=== PATIENT | female | born 1990 | race Caucasian/White ===

== ENCOUNTER 2022-08-17 11:56 | Emergency (ER) | payer MEDICAID ==
[2022-08-17] MEDS ORDERED: Morphine 4 MG/ML Syringe IVPUSH STA (12:29)
[2022-08-17] MEDS ORDERED: Sodium Chloride 0.9% 1,000 ML IV STA ×2 (12:29→13:39)
[2022-08-17] MEDS ORDERED: Ondansetron 4 MG/2 ML SDV IVPUSH STA (12:29)
[2022-08-17 13:15] LABS: CARBON DIOXIDE,CO2 26.6 mmol/L (21.0-32.0); POTASSIUM,K 3.9 mmol/L (3.5-5.1)
[2022-08-17] MEDS ORDERED: Magnesium Sulfate/Water 2 GM in Premix Bag 1 BAG IV STA (13:36)
[2022-08-17] MEDS ORDERED: HYDROmorphone 1 MG/ML Syringe IVPUSH STA (13:39)
[2022-08-17] MEDS ORDERED: Prochlorperazine 10 MG/2 ML SDV IVPUSH STA (13:39)
== END 2022-08-17 15:34 | disposition home or self-care (01) ==
LOC: MW.ED 11:56
DX: R10.2 Pelvic and perineal pain (principal); D50.9 Iron deficiency anemia, unspecified; R11.2 Nausea with vomiting, unspecified; E83.42 Hypomagnesemia; D75.839 Thrombocytosis, unspecified; Z88.1 Allergy status to other antibiotic agents; Z88.0 Allergy status to penicillin; Z87.42 Personal history of other diseases of the female genital tract
CPT/HCPCS: 36415; 80053; 81001; 81025; 83735; 85025; 96361; 96365; 96375; 99284; J0780; J1170; J2270; J2405; J3475; J7030

== ENCOUNTER 2022-09-24 07:23 | Emergency (ER) | payer OTHER, MEDICAID ==
[2022-09-24] MEDS ORDERED: Sodium Chloride 0.9% 1,000 ML IV ONE (07:26)
[2022-09-24] MEDS ORDERED: HYDROmorphone 2 MG/ML Syringe IVPUSH ONE (07:47)
[2022-09-24 08:03] LABS: BLOOD UREA NITROGEN,BUN 12 mg/dL (7.0-18.0); CARBON DIOXIDE,CO2 22.4 mmol/L (21.0-32.0); CHLORIDE,CL 105 mmol/L (98-107); GLUCOSE RANDOM 104 mg/dL (74-106); LIPASE 142 U/L (73-393); POTASSIUM,K 3.6 mmol/L (3.5-5.1); SODIUM,NA 139 mmol/L (136-145)
[2022-09-24 08:06] LABS: ESTIMATED GFR 102 mL/min (>60)
== END 2022-09-24 08:56 | disposition home or self-care (01) ==
LOC: MW.ED 07:23
DX: M54.2 Cervicalgia (principal); M54.50 Low back pain, unspecified; M54.6 Pain in thoracic spine; M25.511 Pain in right shoulder; M25.512 Pain in left shoulder; M25.522 Pain in left elbow; M79.7 Fibromyalgia; Z88.6 Allergy status to analgesic agent; Z88.1 Allergy status to other antibiotic agents; Z88.0 Allergy status to penicillin; Z86.16 Personal history of COVID-19; Z79.899 Other long term (current) drug therapy; V47.5XXA Car driver injured in collision with fixed or stationary object in traffic accident, initial encounter; Y92.410 Unspecified street and highway as the place of occurrence of the external cause
CPT/HCPCS: 36415; 70450; 71260; 72125; 74177; 80053; 80307; 83690; 83735; 84484; 84703; 85025; 85610; 85730; 96361; 96374; 99284; J1170; J7030; 72128-26; 72131-26; 99283

== ENCOUNTER 2022-09-26 09:07 | Emergency (ER) | payer MEDICAID | END 2022-09-26 09:17 | disposition left against medical advice (07) | LOC: MW.ED 09:07 | DX: Z53.21 Procedure and treatment not carried out due to patient leaving prior to being seen by health care provider (principal) ==

== ENCOUNTER 2022-10-03 12:22 | Emergency (ER) | payer OTHER, MEDICAID ==
[2022-10-03] MEDS: Orphenadrine 60 MG/2 ML Inj IM ONE (13:03)
[2022-10-03] MEDS: Ketorolac 60 MG/2 ML SDV IM ONE (13:03)
== END 2022-10-03 13:24 | disposition home or self-care (01) ==
LOC: MW.ED 12:22
DX: S46.812A Strain of other muscles, fascia and tendons at shoulder and upper arm level, left arm, initial encounter (principal); Z88.1 Allergy status to other antibiotic agents; Z88.8 Allergy status to other drugs, medicaments and biological substances; V89.2XXA Person injured in unspecified motor-vehicle accident, traffic, initial encounter; Y92.410 Unspecified street and highway as the place of occurrence of the external cause
CPT/HCPCS: 96372; 99283; J1885; J2360

== ENCOUNTER 2023-10-26 20:56 | Emergency (ER) | payer MEDICAID ==
[2023-10-26] MEDS: Albuterol/Ipratropium 3.0-0.5 MG/3 ML Neb Soln NEB ONE (21:36)
[2023-10-26] MEDS: Sodium Chloride 0.9% 2.5 ML Syringe FLUSH PRN (21:38)
[2023-10-26] MEDS: Sodium Chloride 0.9% 10 ML Syringe FLUSH PRN (21:39)
[2023-10-26 21:50] LABS: BASOPHILS ABSOLUTE AUTO 0.04 K/uL (0.00-0.20); BASOPHILS PERCENT AUTO 0.4 % (0.0-1.0); EOSINOPHILS ABSOLUTE AUTO 0.33 K/uL (0.00-0.45); EOSINOPHILS PERCENT AUTO 3.1 % (0.0-6.0); HEMATOCRIT 38.2 % (37.0-47.0); IMMATURE GRAN ABSOLUTE AUTO 0.09 K/uL (0.00-0.05); IMMATURE GRAN PERCENT AUTO 0.8 % (0.0-0.4); LYMPHOCYTES ABSOLUTE AUTO 4.66 K/uL (1.00-4.80); LYMPHOCYTES PERCENT AUTO 43.1 % (24.0-44.0); MEAN CORPUSCULAR HEMOGLOBIN 26.7 pg (28.0-32.0); MEAN CORPUSCULAR VOLUME 78.6 fL (83.0-99.0); MEAN PLATELET VOLUME 9.4 fL (9.4-12.3); MONOCYTES ABSOLUTE AUTO 0.67 K/uL (0.00-0.80); MONOCYTES PERCENT AUTO 6.2 % (0.0-8.0); NEUTROPHILS ABSOLUTE AUTO 5.02 K/uL (1.80-7.70); NEUTROPHILS PERCENT AUTO 46.4 % (41.0-71.0); PLATELET COUNT,PLT 366 K/uL (150-400); RED BLOOD CELL COUNT 4.86 M/uL (4.10-5.30); WHITE BLOOD CELL COUNT,WBC 10.81 K/uL (3.9-11.3)
[2023-10-26 22:17] LABS: A/G RATIO 0.7 (0.9-1.6); ALANINE AMINOTRANSFERASE,ALT 25 IU/L (14-63); ALBUMIN 3.1 g/dL (3.4-5.0); ALKALINE PHOSPHATASE 77 U/L (46-116); ASPARTATE AMNIOTRANSFERASE,AST 16 IU/L (15-37); BILIRUBIN TOTAL 0.1 mg/dL (0.2-1.0); BLOOD UREA NITROGEN,BUN 14 mg/dL (7.0-18.0); CALCIUM 9.6 mg/dL (8.5-10.1); CARBON DIOXIDE,CO2 25.2 mmol/L (21.0-32.0); CHLORIDE,CL 102 mmol/L (98-107); CREATININE 0.9 mg/dL (0.6-1.0); EST CRCL DRUG DOSING (CG) 71.63 mL/min; GLUCOSE RANDOM 91 mg/dL (74-106); POTASSIUM,K 4.1 mmol/L (3.5-5.1); PROTEIN TOTAL,TP 7.6 g/dL (6.4-8.2); SODIUM,NA 139 mmol/L (136-145)
[2023-10-26 22:27] LABS: ESTIMATED GFR 88 mL/min (>60)
[2023-10-26 23:17] LABS: CORONAVIRUS COVID-19 NAA NEGATIVE (NEGATIVE); INFLUENZA A NAA NEGATIVE (NEGATIVE); INFLUENZA B NAA NEGATIVE (NEGATIVE)
[2023-10-26] MEDS: Sucralfate Suspension 1 GM/10 ML Cup PO ONE (23:49)
[2023-10-26] MEDS: Sodium Chloride 0.9% 500 ML IV SCH (23:49)
[2023-10-26] MEDS: Famotidine 20 MG/2 ML SDV IVPUSH ONE (23:50)
[2023-10-27] MEDS: Metoclopramide 10 MG/2 ML SDV IVPUSH ONE (00:06)
[2023-10-27] MEDS: diphenhydrAMINE 50 MG/ML SDV IVPUSH ONE (00:06)
[2023-10-27] MEDS ORDERED: Iopamidol 755 MG/ML 500 ML Multipack Bottle IVPUSH ONE (00:55)
== END 2023-10-27 02:25 | disposition home or self-care (01) ==
LOC: MW.ED 20:56
DX: R07.89 Other chest pain (principal); R05.9 Cough, unspecified; Z88.4 Allergy status to anesthetic agent; Z88.1 Allergy status to other antibiotic agents; Z88.0 Allergy status to penicillin; Z88.8 Allergy status to other drugs, medicaments and biological substances; Z79.899 Other long term (current) drug therapy; Z86.16 Personal history of COVID-19; Z86.19 Personal history of other infectious and parasitic diseases
CPT/HCPCS: 0240U; 36415; 71046; 71275; 80053; 84484; 84703; 85025; 85379; 93005; 96374; 96375; 99285; A9270; J1200; J2765; J3490; J7040; 93010; 99284; J7620-GY

== ENCOUNTER 2024-04-23 09:21 | Day surgery (SDC) | payer MEDICAID ==
[2024-04-23] MEDS ORDERED: Propofol 200 MG/20 ML SDV ONE ×2 (10:24→10:39)
[2024-04-23] MEDS ORDERED: Lidocaine 2% 5 ML SDV ONE (10:24)
[2024-04-23] MEDS ORDERED: Midazolam 1 MG/ML 2 ML SDV ONE (10:28)
[2024-04-23] MEDS: Lactated Ringers 1,000 ML IV SCH (10:33)
[2024-04-23] MEDS ORDERED: Ondansetron 4 MG/2 ML SDV ONE ×2 (10:42→11:18)
[2024-04-23] MEDS ORDERED: Lactated Ringers 1,000 ML IV SCH (11:00)
[2024-04-23] MEDS: Ondansetron 4 MG/2 ML SDV IVPUSH ONE (11:28)
== END 2024-04-23 11:45 | disposition home or self-care (01) ==
LOC: MW.SDS 09:21
PROVIDERS: ATTEND Surgery
DX: K21.00 Gastro-esophageal reflux disease with esophagitis, without bleeding (principal); K44.9 Diaphragmatic hernia without obstruction or gangrene; F32.A Depression, unspecified; F41.1 Generalized anxiety disorder; Z79.899 Other long term (current) drug therapy; Z88.0 Allergy status to penicillin; Z88.5 Allergy status to narcotic agent
CPT/HCPCS: 43239; 81025; J2250; J2405; J2704; J7120; 00731; J3490

== ENCOUNTER 2024-10-10 20:08 | Emergency (ER) | payer MEDICAID ==
[2024-10-10] MEDS: Sodium Chloride 0.9% 1,000 ML IV ONE ×2 (20:24→20:45)
[2024-10-10] MEDS: Ondansetron 4 MG/2 ML SDV IVPUSH ONE (20:25)
[2024-10-10 20:27] LABS: BASOPHILS ABSOLUTE AUTO 0.06 K/uL (0.00-0.20); BASOPHILS PERCENT AUTO 0.3 % (0.0-1.0); EOSINOPHILS ABSOLUTE AUTO 0.01 K/uL (0.00-0.45); HEMATOCRIT 42.2 % (37.0-47.0); HEMOGLOBIN 14.5 g/dL (12.0-16.0); IMMATURE GRAN PERCENT AUTO 0.5 % (0.0-0.4); LYMPHOCYTES ABSOLUTE AUTO 0.76 K/uL (1.00-4.80); LYMPHOCYTES PERCENT AUTO 3.6 % (24.0-44.0); MEAN CORPUSCULAR HEMOGLOBIN 27.3 pg (28.0-32.0); MEAN CORPUSCULAR HGB CONC 34.4 g/dL (32.0-36.0); MEAN CORPUSCULAR VOLUME 79.3 fL (83.0-99.0); MEAN PLATELET VOLUME 9.2 fL (9.4-12.3); MONOCYTES ABSOLUTE AUTO 0.62 K/uL (0.00-0.80); MONOCYTES PERCENT AUTO 2.9 % (0.0-8.0); NEUTROPHILS ABSOLUTE AUTO 19.64 K/uL (1.80-7.70); NEUTROPHILS PERCENT AUTO 92.7 % (41.0-71.0); PLATELET COUNT,PLT 592 K/uL (150-400); RED BLOOD CELL COUNT 5.32 M/uL (4.10-5.30); WHITE BLOOD CELL COUNT,WBC 21.19 K/uL (3.9-11.3)
[2024-10-10] MEDS: HYDROmorphone 1 MG/ML Syringe IVPUSH ONE (20:27)
[2024-10-10 21:04] LABS: GLUCOSE,URINE NEGATIVE (NEGATIVE); KETONES,URINE 40 mg/dL (NEGATIVE); LEUKOCYTE ESTERASE,URINE NEGATIVE (NEGATIVE); NITRITE,URINE NEGATIVE (NEGATIVE); OCCULT BLOOD,URINE MODERATE (NEGATIVE); PH,URINE 5.5 (5.0-8.0); PROTEIN,URINE 30 mg/dL (NEGATIVE); UROBILINOGEN,URINE 0.2 EU/dL (<2.0)
[2024-10-10] MEDS: cefTRIAXone 1 GM in Sodium Chloride 0.9% 50 ML IV ONE (21:09)
[2024-10-10 21:19] LABS: APPEARANCE,URINE HAZY; BILIRUBIN,URINE SMALL (NEGATIVE); COLOR,URINE DARK YELLOW
[2024-10-10 21:20] LABS: AMORPHOUS SEDIMENT,URINE HEAVY (NEGATIVE); BACTERIA,URINE 1+ (NEGATIVE); EPITHELIAL CELLS,URINE FEW (NONE-FEW); MUCUS,URINE MODERATE (NONE-MOD); WBC,URINE 0-2 (0-5/HPF)
[2024-10-10] MEDS: Iopamidol 755 MG/ML 500 ML Multipack Bottle IVPUSH ONE (21:23)
[2024-10-10 21:31] LABS: LACTIC ACID 2.6 mmol/L (0.4-2.0)
[2024-10-10 21:43] LABS: A/G RATIO 0.9 (0.9-1.6); BILIRUBIN TOTAL 0.7 mg/dL (0.2-1.0); CALCIUM 9.4 mg/dL (8.5-10.1); CARBON DIOXIDE,CO2 18.5 mmol/L (21.0-32.0); CREATININE 1.3 mg/dL (0.6-1.0); EST CRCL DRUG DOSING (CG) 51.39 mL/min; POTASSIUM,K 3.9 mmol/L (3.5-5.1); PROTEIN TOTAL,TP 8.6 g/dL (6.4-8.2)
[2024-10-10 21:59] LABS: CANDIDA DNA PROBE NEGATIVE (NEGATIVE); GARDNERELLA DNA PROBE POSITIVE (NEGATIVE); TRICHOMONAS DNA PROBE NEGATIVE (NEGATIVE)
[2024-10-10] MEDS: metroNIDAZOLE/Normal Saline 500 MG in Premix Bag 1 BAG IV ONE (22:14)
[2024-10-10 22:34] LABS: C. TRACHOMATIS BY PCR NOT DETECTED; N. GONORRHOEAE BY PCR NOT DETECTED
== END 2024-10-10 23:13 | disposition home or self-care (01) ==
LOC: MW.ED 20:08
DX: K52.9 Noninfective gastroenteritis and colitis, unspecified (principal); Z86.16 Personal history of COVID-19; Z88.1 Allergy status to other antibiotic agents; Z79.899 Other long term (current) drug therapy; Z88.0 Allergy status to penicillin; Z88.8 Allergy status to other drugs, medicaments and biological substances; Z75.8 Other problems related to medical facilities and other health care
CPT/HCPCS: 36415; 74177; 76856; 80053; 81001; 81025; 83605; 83690; 85025; 87040; 87480; 87491; 87510; 87591; 87660; 96361; 96365; 96367; 96375; 99284; J0696; J1171; J1836; J2405; J7030; Q9967; 99283

== ENCOUNTER 2024-12-13 15:48 | Emergency (ER) | payer BC, MEDICAID ==
[2024-12-13 17:08] LABS: HEMATOCRIT 35.4 % (37.0-47.0); HEMOGLOBIN 11.9 g/dL (12.0-16.0); IMMATURE GRAN ABSOLUTE AUTO 0.02 K/uL (0.00-0.05); IMMATURE GRAN PERCENT AUTO 0.2 % (0.0-0.4); LYMPHOCYTES PERCENT AUTO 34.3 % (24.0-44.0); MEAN CORPUSCULAR HGB CONC 33.6 g/dL (32.0-36.0); MEAN CORPUSCULAR VOLUME 80.3 fL (83.0-99.0); MEAN PLATELET VOLUME 9.1 fL (9.4-12.3); MONOCYTES ABSOLUTE AUTO 0.66 K/uL (0.00-0.80); MONOCYTES PERCENT AUTO 6.7 % (0.0-8.0); NEUTROPHILS ABSOLUTE AUTO 5.52 K/uL (1.80-7.70); NEUTROPHILS PERCENT AUTO 55.8 % (41.0-71.0); PLATELET COUNT,PLT 414 K/uL (150-400); RED BLOOD CELL COUNT 4.41 M/uL (4.10-5.30)
[2024-12-13] MEDS: Alum Hydrox/Mag Hydrox/Simeth 15 ML, Metoclopramide 5 MG, Lidocaine 2% 5 ML PO ONE (17:14)
[2024-12-13] MEDS: Ketorolac 10 MG Tab PO ONE (17:16)
[2024-12-13 17:30] LABS: A/G RATIO 0.9 (0.9-1.6); ALBUMIN 3.2 g/dL (3.4-5.0); BILIRUBIN TOTAL 0.2 mg/dL (0.2-1.0); CARBON DIOXIDE,CO2 23.7 mmol/L (21.0-32.0); CREATININE 0.9 mg/dL (0.6-1.0); EST CRCL DRUG DOSING (CG) 70.98 mL/min; POTASSIUM,K 3.7 mmol/L (3.5-5.1); PROTEIN TOTAL,TP 6.9 g/dL (6.4-8.2)
[2024-12-13 18:16] LABS: BILIRUBIN,URINE NEGATIVE (NEGATIVE); COLOR,URINE YELLOW; GLUCOSE,URINE NEGATIVE (NEGATIVE); KETONES,URINE 15 mg/dL (NEGATIVE); LEUKOCYTE ESTERASE,URINE NEGATIVE (NEGATIVE); NITRITE,URINE NEGATIVE (NEGATIVE); OCCULT BLOOD,URINE MODERATE (NEGATIVE); PH,URINE 5.5 (5.0-8.0); PROTEIN,URINE NEGATIVE (NEGATIVE); UROBILINOGEN,URINE 0.2 EU/dL (<2.0)
[2024-12-13 18:20] LABS: APPEARANCE,URINE HAZY
[2024-12-13 18:25] LABS: BACTERIA,URINE FEW (NEGATIVE); EPITHELIAL CELLS,URINE RARE (NONE-FEW); MUCUS,URINE FEW (NONE-MOD); RBC,URINE 0-2 (0-2/HPF); WBC,URINE 0-2 (0-5/HPF)
== END 2024-12-13 19:05 | disposition home or self-care (01) ==
LOC: MW.ED 15:48
DX: R10.9 Unspecified abdominal pain (principal); Z75.3 Unavailability and inaccessibility of health-care facilities; Z88.6 Allergy status to analgesic agent; Z88.0 Allergy status to penicillin; Z88.1 Allergy status to other antibiotic agents; Z79.899 Other long term (current) drug therapy; Z86.16 Personal history of COVID-19
CPT/HCPCS: 36415; 80053; 81001; 81025; 83690; 85025; 99284; A9270; 99283

== ENCOUNTER 2025-05-27 09:11 | Emergency (ER) | payer BC ==
[2025-05-27] MEDS ORDERED: Sodium Chloride 0.9% 2.5 ML Syringe FLUSH PRN (09:44)
[2025-05-27] MEDS ORDERED: Sodium Chloride 0.9% 10 ML Syringe FLUSH PRN (09:44)
[2025-05-27] MEDS: droPERidol 2.5 MG/ML SDV IVPUSH ONE ×2 (10:10→11:26)
[2025-05-27 10:14] LABS: BASOPHILS ABSOLUTE AUTO 0.08 K/uL (0.00-0.20); BASOPHILS PERCENT AUTO 0.7 % (0.0-1.0); EOSINOPHILS ABSOLUTE AUTO 0.01 K/uL (0.00-0.45); EOSINOPHILS PERCENT AUTO 0.1 % (0.0-6.0); IMMATURE GRAN ABSOLUTE AUTO 0.04 K/uL (0.00-0.05); IMMATURE GRAN PERCENT AUTO 0.4 % (0.0-0.4); LYMPHOCYTES ABSOLUTE AUTO 1.19 K/uL (1.00-4.80); LYMPHOCYTES PERCENT AUTO 10.9 % (24.0-44.0); MEAN PLATELET VOLUME 9.2 fL (9.4-12.3); MONOCYTES ABSOLUTE AUTO 0.33 K/uL (0.00-0.80); MONOCYTES PERCENT AUTO 3.0 % (0.0-8.0); NEUTROPHILS ABSOLUTE AUTO 9.27 K/uL (1.80-7.70); NEUTROPHILS PERCENT AUTO 84.9 % (41.0-71.0); NRBC ABSOLUTE 0.00 K/uL (0.00-0.02); NRBC PERCENT 0.0 /100WBC (0.0-0.2); PLATELET COUNT,PLT 527 K/uL (150-400); RED BLOOD CELL COUNT 5.00 M/uL (4.10-5.30); WHITE BLOOD CELL COUNT,WBC 10.92 K/uL (3.9-11.3)
[2025-05-27] MEDS: Ketorolac 30 MG/ML SDV IVPUSH ONE (10:28)
[2025-05-27 10:40] LABS: A/G RATIO 0.9 (0.9-1.6); ALANINE AMINOTRANSFERASE,ALT 16.0 IU/L (14-63); ASPARTATE AMNIOTRANSFERASE,AST 14.0 IU/L (15-37); BILIRUBIN TOTAL 0.3 mg/dL (0.2-1.0); BLOOD UREA NITROGEN,BUN 9.0 mg/dL (7.0-18.0); CARBON DIOXIDE,CO2 23.0 mmol/L (21.0-32.0); CHLORIDE,CL 107.0 mmol/L (98-107); CREATININE 0.8 mg/dL (0.6-1.0); EST CRCL DRUG DOSING (CG) 79.85 mL/min; GLUCOSE RANDOM 152.0 mg/dL (74-106); POTASSIUM,K 3.9 mmol/L (3.5-5.1); PROTEIN TOTAL,TP 7.7 g/dL (6.4-8.2); SODIUM,NA 143.0 mmol/L (136-145)
[2025-05-27 10:41] LABS: ESTIMATED GFR 100.0 mL/min (>60)
[2025-05-27] MEDS: Ondansetron 4 MG/2 ML SDV IVPUSH ONE (11:31)
== END 2025-05-27 13:07 | disposition home or self-care (01) ==
LOC: MW.ED 09:11
DX: R11.2 Nausea with vomiting, unspecified (principal); Z88.0 Allergy status to penicillin; Z88.1 Allergy status to other antibiotic agents; Z88.5 Allergy status to narcotic agent; Z88.8 Allergy status to other drugs, medicaments and biological substances; Z79.899 Other long term (current) drug therapy; Z75.3 Unavailability and inaccessibility of health-care facilities
CPT/HCPCS: 36415; 80053; 83690; 83735; 85025; 96361; 96374; 96375; 96376; 99284; J1790; J1885; J7030; 99283

== ENCOUNTER 2025-05-28 01:32 | Emergency (ER) | payer BC ==
[2025-05-28] MEDS: Ketorolac 30 MG/ML SDV IVPUSH ONE ×2 (01:55→06:54)
[2025-05-28 01:56] LABS: BASOPHILS ABSOLUTE AUTO 0.06 K/uL (0.00-0.20); BASOPHILS PERCENT AUTO 0.4 % (0.0-1.0); EOSINOPHILS ABSOLUTE AUTO 0.00 K/uL (0.00-0.45); EOSINOPHILS PERCENT AUTO 0.0 % (0.0-6.0); IMMATURE GRAN ABSOLUTE AUTO 0.05 K/uL (0.00-0.05); IMMATURE GRAN PERCENT AUTO 0.3 % (0.0-0.4); LYMPHOCYTES ABSOLUTE AUTO 1.83 K/uL (1.00-4.80); LYMPHOCYTES PERCENT AUTO 11.8 % (24.0-44.0); MEAN PLATELET VOLUME 8.9 fL (9.4-12.3); MONOCYTES ABSOLUTE AUTO 1.00 K/uL (0.00-0.80); MONOCYTES PERCENT AUTO 6.4 % (0.0-8.0); NEUTROPHILS ABSOLUTE AUTO 12.57 K/uL (1.80-7.70); NEUTROPHILS PERCENT AUTO 81.1 % (41.0-71.0); NRBC ABSOLUTE 0.00 K/uL (0.00-0.02); NRBC PERCENT 0.0 /100WBC (0.0-0.2); PLATELET COUNT,PLT 571 K/uL (150-400); RED BLOOD CELL COUNT 4.93 M/uL (4.10-5.30); WHITE BLOOD CELL COUNT,WBC 15.51 K/uL (3.9-11.3)
[2025-05-28] MEDS: Ondansetron 4 MG/2 ML SDV IVPUSH ONE (01:57)
[2025-05-28] MEDS: droPERidol 2.5 MG/ML SDV IVPUSH ONE ×3 (02:02→08:53)
[2025-05-28] MEDS ORDERED: Naloxone 0.4 MG/ML SDV IVPUSH PRN (02:22)
[2025-05-28 02:38] LABS: A/G RATIO 0.9 (0.9-1.6); ALANINE AMINOTRANSFERASE,ALT 17 IU/L (14-63); ASPARTATE AMNIOTRANSFERASE,AST 13 IU/L (15-37); BILIRUBIN TOTAL 0.4 mg/dL (0.2-1.0); BLOOD UREA NITROGEN,BUN 10 mg/dL (7.0-18.0); CARBON DIOXIDE,CO2 23.3 mmol/L (21.0-32.0); CHLORIDE,CL 106 mmol/L (98-107); CREATININE 1.0 mg/dL (0.6-1.0); EST CRCL DRUG DOSING (CG) 63.88 mL/min; GLUCOSE RANDOM 130 mg/dL (74-106); POTASSIUM,K 3.5 mmol/L (3.5-5.1); PROTEIN TOTAL,TP 8.0 g/dL (6.4-8.2); SODIUM,NA 143 mmol/L (136-145)
[2025-05-28] MEDS: Iopamidol 755 Mg/ML 100 ML Bottle IVPUSH ONE (03:08)
[2025-05-28 03:20] LABS: ESTIMATED GFR 77 mL/min (>60); HCG QUANTITATIVE < 1.0 mIU/mL
[2025-05-28 03:53] LABS: APPEARANCE,URINE CLEAR; GLUCOSE,URINE NEGATIVE (NEGATIVE); OCCULT BLOOD,URINE LARGE (NEGATIVE)
[2025-05-28 04:06] LABS: EPITHELIAL CELLS,URINE FEW (NONE-FEW)
[2025-05-28] MEDS: Labetalol 100 MG/20 ML MDV IVPUSH ONE (05:31)
[2025-05-28] MEDS: hydrALAZINE 20 MG/ML SDV IVPUSH ONE (08:15)
== END 2025-05-28 11:08 ==
LOC: MW.ED 01:32
DX: R11.2 Nausea with vomiting, unspecified (principal); J98.2 Interstitial emphysema; R10.30 Lower abdominal pain, unspecified; Z88.6 Allergy status to analgesic agent; Z88.8 Allergy status to other drugs, medicaments and biological substances; Z88.0 Allergy status to penicillin; Z79.899 Other long term (current) drug therapy
CPT/HCPCS: 36415; 71250; 74177; 80053; 81001; 83690; 84702; 85025; 96361; 96374; 96375; 96376; 99285; J0360; J1171; J1790; J1885; J1920; J7030; Q9967; 99284